=== PATIENT | male | born 1995 | race Caucasian/White ===

== ENCOUNTER 2016-10-26 14:36 | Emergency (ER) | payer BC, OTHER ==
[2016-10-26 14:50] VITALS: BP 121/70
--- NOTE | 2016-10-26 16:20 | UC ---
General HPI - HPI Summary HPI Summary: 21 y/o male presents to the urgent care accompany by mother c/o joint pains, ZAMUDIO and a rash in his RT arm and RT lower leg for 1 week. Pt reports his symptoms started with left neck and a rash in his RT lower leg. Then lower back mild pain and ZAMUDIO. He has taking advisl and went to the Quiropractor last Friday and She RX tylenol and arnica with some essential oils. Neck pain improved for 1 day. Then on he developed the rash in his RT wrist and neck pain returned with malaise, subjective fever. He returned to the Quiropractor who Rx some fish oil tabs and echinacea. Symptoms improved again, but today they returned with left eye disturbance. 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 However he can't recalled if he had a tick bite . He had rashes, but don't know if they were from a tick. Pt denies SOB, chest pain, N/V/D, urinary symptoms, sore throat, cough, Hx of STD's. Mother states she is concern about his son may have Lyme disease. She request testing. 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 Negative: Abdominal Pain, Cough, Chest Pain, Dizziness, Diarrhea, Dysuria, SOB, Vomiting - Allergy/Home Medications Allergies/Adverse Reactions: Allergies Allergy/AdvReac Type Severity Reaction Status Date / Time No Known Allergies Allergy Verified 10/26/16 14:50 PMH/Surg Hx/FS Hx/Imm Hx Previously Healthy: Yes Psychological History: Depression Other Psychological History: OCD - Surgical History Surgical History: None - Family History Family History: Migraine ZAMUDIO, Psoriasis, arthritis - Social History Occupation: Student Lives: With Family Alcohol Use: Occasionally Substance Use Type: Marijuana Substance Use Comment - Amount & Last Used: 232907/04/13 Smoking Status (MU): Former Smoker - Immunization History Vaccination Up to Date: Yes Review of Systems Constitutional: Fever - subjective at home, Fatigue Skin: Rash - RT wrist and RT lower leg rash Eyes: Other - LF eye with mild eye disturbance ENT: Negative Respiratory: Negative Cardiovascular: Negative Gastrointestinal: Negative Genitourinary: Negative Motor: Negative Neurovascular: Negative Musculoskeletal: Arthralgia, Myalgia Neurological: Headache Psychological: Negative Is Patient Immunocompromised?: No All Other Systems Reviewed And Are Negative: Yes Physical Exam Triage Information Reviewed: Yes Appearance: Well-Appearing, No Pain Distress, Well-Nourished Vital Signs: Initial Vital Signs Temp 98.2 F 10/26/16 14:45 Pulse 77 10/26/16 14:45 Resp 12 10/26/16 14:45 BP 121/70 10/26/16 14:45 Pulse Ox 99 10/26/16 14:45 Vital Signs Reviewed: Yes Eye Exam: Normal Eyes: Positive: Conjunctiva Clear - PERRLA, EOMI, visual acuity RT eye 20/20 Left 20/20, both 20/20 ENT Exam: Normal ENT: Positive: Normal ENT inspection, Hearing grossly normal, Pharynx normal, TMs normal Dental Exam: Normal Neck exam: Normal Neck: Positive: Supple, No Lymphadenopathy, Tenderness @ - mild at base of the neck, No meningeal signs, no Kernig's or brudzinskis signs. Respiratory Exam: Normal Respiratory: Positive: Chest non-tender, Lungs clear, Normal breath sounds, No respiratory distress Cardiovascular Exam: Normal Cardiovascular: Positive: RRR, No Murmur, Pulses Normal, Brisk Capillary Refill Abdominal Exam: Normal Abdomen Description: Positive: Nontender, No Organomegaly, Soft. Negative: CVA Tenderness (R), CVA Tenderness (L) Bowel Sounds: Positive: Present Musculoskeletal Exam: Normal Musculoskeletal: Positive: ROM Intact, No Edema Neurological Exam: Normal Neurological: Positive: Alert, Muscle Tone Normal Psychological Exam: Normal Skin: Positive: rashes - RTventral side of wrist with and erythematous patch and disccrete central clearance. RT lower leg with similar rash. about 4cm x4cm in size, non tender to palpation. Course/Dx - Course Course Of Treatment: 21 y/o male presents to the urgent care accompany by mother c/o joint pains, ZAMUDIO and a rash in his RT arm and RT lower leg for 1 week. Pt reports his symptoms started with left neck and a rash in his RT lower leg. Then lower back mild pain and ZAMUDIO. He has taking advisl and went to the Quiropractor last Friday and She RX tylenol and arnica with some essential oils. Neck pain improved for 1 day. Then on he developed the rash in his RT wrist and neck pain returned with malaise, subjective fever. He returned to the Quiropractor who Rx some fish oil tabs and echinacea. Symptoms improved again, but today they returned with left eye disturbance. 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 However he can't recalled if he had a tick bite . He had rashes, but don't know if they were from a tick. Pt denies SOB, chest pain, N/V/ D, urinary symptoms, sore throat, cough, Hx of STDs. Mother states she is concern about her son may have Lyme disease. She request testing. HX obtained. On examination pt with a questinable bull's eye rash. Pt with ZAMUDIO, joint pains and myalgias and subjective fever. Mother and Pt educated on Lyme disease. and the posibility of Lyme serology return negative the firs 2 weeks of exposure. Mother still requests Serology. [facility]merology ordere and Pt Rx Doxycycline PO to Tx lyme disease. P{t advised to take full course of antibiotic despite the result and Advised to f/u with DR Carey or a PCP in 1 week for further management on his symptoms despite results. Mother and Pt understood plan of care. Pt left the clinic ambulating, A&OX3 - Differential Dx - Multi-Symptom Differential Diagnoses: Urinary Tract Infection, Other - influenza, tick bite, lyme disease, poison Jalyn or oak, allergic reaction, URI, STD's Provider Diagnoses: 1- rash r/o lyme disease. 2-Headache. 3- Joint pain Discharge - Discharge Plan Condition: Stable Disposition: HOME Prescriptions: DOXYcycline CAP(*) [DOXYcycline 100MG CAP(*)] 100 mg PO BID #28 cap Ibuprofen TAB* [Motrin TAB* 800 MG] 800 mg PO Q6H #30 tab Patient Education Materials: Lyme Disease (ED) Referrals: Bradley Chacon MD [Primary Care Provider] - 1 Week Aurelio SHUKLA,Nic Santos [Medical Doctor] - 1 Week Additional Instructions: 1- Please take full course of antibiotic to avoid resistance. 2- Take Ibuprofen 6-8hrs prn to alleviate headache and joint pain 2- Lyme Serology and blood work still pending. You will be notified of results 3- F/u with DR Carey or a PCP in 1 week for further management in Lyme Disease
== END 2016-10-26 16:40 | disposition home or self-care (01) ==
LOC: UCEAST 14:36
DX: A69.20 Lyme disease, unspecified (principal); M25.50 Pain in unspecified joint; R51 Headache
CPT/HCPCS: 86618; 99202; G0463